=== PATIENT | female | born 1945 | race African-American/Black ===

== ENCOUNTER → 2016-12-18 | Outpatient (CLI) | payer MEDICARE ==
[~2016-12-18] MED LIST: (NONE)500 MCG PO; AMLODIPINE BESY10 MG PO; AMLODIPINE BESYL5 MG PO; ARAVA10 MG PO; AZOR 5-20 MG T1 EACH; CALCIUM 5001 TAB PO; CALCIUM500 MG PO; CENTRUM SILVER1 EAC1 PO; FLEXERIL10 M1 PO; FLONASE 0.05% N16 G1; FLONASE16 GM; IBUPROFEN800 MG PO; IMURAN50 MG PO; LEFLUNOMIDE10 MG; LORTAB 7.5-5001 TAB PO; MICARDIS HCT PO; NORVASC PO; PERCOCET 5-3251 TAB PO; PLAQUENIL200 MG PO; PREDNISOLONE5 MG PO; PREDNISONE PO; PREDNISONE5 M1 PO; PROLIA60 MG/1 ML SQ; PROTONIX PO; REMICADE; SALSALATE PO; VIT B-12 PO; VITAMIN D31000 UNI1 PO; ZYRTEC PO
[2016-12-18 14:27] LABS: HEMATOCRIT 34.9 % (35.0-45.0); HEMOGLOBIN 11.1 gm/dL (12.0-16.0); MEAN CELL VOLUME 92.9 FL (83-96); MEAN CORPUSCULAR HEMOGLOBIN 29.6 PG (28-34); MEAN CORPUSCULAR HGB CONC 31.8 g/dL (30-36); MEAN PLATELET VOLUME 9.2 FL (6.5-11.5); RED BLOOD COUNT 3.76 X10e (3.90-5.30); RED CELL DISTRIBUTION WIDTH 15.4 % (11.0-15.5); WHITE BLOOD COUNT 3.4 X10e3 (4.0-10.5)
[2016-12-18 14:57] LABS: ALBUMIN SERUM 3.5 g/dL (3.5-5.0); BILIRUBIN,TOTAL 0.4 mg/dL (0.2-2.0); BUN/CREATININE RATIO 14.61; CALCIUM SERUM 9.2 mg/dL (8.4-10.2); CREATININE SERUM 1.3 mg/dL (0.6-1.4); GLOM FILT RATE Estimated 47.8 mL/min (>60); POTASSIUM 3.1 mmol/L (3.5-5.1); PROTEIN TOTAL SERUM 8.3 g/dL (6.0-8.3)
== END | disposition home or self-care (01) ==
LOC: CLAB 13:45
PROVIDERS: Specialist
DX: R19.4 Change in bowel habit (principal); Z85.038 Personal history of other malignant neoplasm of large intestine
CPT/HCPCS: 36415; 80053; 82378; 85027

== ENCOUNTER → 2017-04-18 | Outpatient (CLI) | payer MEDICARE ==
--- NOTE | ~2017-04-18 | CT2 ---
[facility] A Service of [facility] RADIOLOGY TEXT RESULTS PATIENT: MARIUM SAN LOCATION: [facility] : 45 UNIT #: [id number] AGE: [address]: Dickson Anguiano MD SEX: F ORDER DR: [id number] [facility]. [place], [place] [address] [id number] O MR#: [id number] [facility] #: [id number] NAME: MARIUM SAN : 1945 SEX: F STUDY DATE/TIME: 04/18/2017 09:13 UNIT: [facility] ROOM: STUDY DESCRIPTION: CT Abd and Pelv W Cont Attending Physician: Dickson Anguiano M.D. Referring Physician: Dickson Anguiano M.D. Ordering Physician: Dickson Anguiano M.D. Primary Care Physician: Randolph Berry M.D. MEDICAL IMAGING REPORT This report is preliminary unless electronic signature is present EXAM CT abdomen and pelvis with contrast, 04/18/2017, 0913 hours. HISTORY 71-year-old with history of colon carcinoma with chemotherapy 2011. Generalized abdominal pain for 2 weeks usually after eating. COMPARISON 04/17/[address] exam was performed with one or more of the following radiation dose reduction techniques: Automatic exposure control, adjustment of mA and/or kV according to patient size, and iterative reconstruction. FINDINGS Images through the lung bases demonstrate stable nonspecific interstitial fibrotic change, right greater than left lung base. No lung nodules are seen. At L2, inferior endplate and L4 superior endplate unchanged. IMPRESSION 1. There is no significant interval change from 04/17/2016. There is no evidence of metastatic disease. 2. The gallbladder is contracted. No definite stones are seen. 3. Postop change right colectomy with stable appearance to anastomoses. 4. Compression deformities L2 and L4 unchanged from 04/17/2016. Dictated by... Diane Bergman M.D. THIS IS AN ELECTRONICALLY VERIFIED REPORT [facility] A Service of [facility] RADIOLOGY TEXT RESULTS PATIENT: MARIUM SAN LOCATION: [facility] : 45 UNIT #: [id number] AGE: [address]: Dickson Anguiano MD SEX: F ORDER DR: Diane Bergman M.D. at 04/18/2017 2:30 PM [place]/maya TD: 04/18/2017 12:47 JOB #: [id number] MEDICAL IMAGING REPORT Page 1 of 1 COPY
[2017-04-18 09:45] LABS: POC - CREATININE 0.93 mg/dL (0.44-1.03); POC - GFR >60.0 mL/min (>60)
== END | disposition home or self-care (01) ==
LOC: CCAT 07:47
PROVIDERS: Internal Medicine Medical Oncology
DX: Z08 Encounter for follow-up examination after completed treatment for malignant neoplasm (principal); D63.8 Anemia in other chronic diseases classified elsewhere; R04.2 Hemoptysis; K82.0 Obstruction of gallbladder; Z90.49 Acquired absence of other specified parts of digestive tract; Z85.038 Personal history of other malignant neoplasm of large intestine
CPT/HCPCS: 74177; 82565; Q9967